=== PATIENT | male | born 1945 ===

== ENCOUNTER 2018-09-09 07:52 | Outpatient (CLI) | payer MEDICARE ==
[2018-09-09] MEDS ORDERED: AD OINTMENT TP PRN (08:43)
== END 2018-09-09 07:53 | disposition home or self-care (01) ==
LOC: WOUND 07:52
PROVIDERS: ATTEND Surgery
DX: S91.302A Unspecified open wound, left foot, initial encounter (principal); G20 Parkinson's disease; M79.671 Pain in right foot; Z86.73 Personal history of transient ischemic attack (TIA), and cerebral infarction without residual deficits; X58.XXXA Exposure to other specified factors, initial encounter; Y93.9 Activity, unspecified; Y92.89 Other specified places as the place of occurrence of the external cause; Y99.8 Other external cause status
CPT/HCPCS: A6250; G0463-25